=== PATIENT | male | born 2000 | race Caucasian/White ===

== ENCOUNTER 2018-02-07 10:43 | Observation (INO) ==
--- NOTE | 2018-02-07 11:11 | General Surg History&Physical ---
<Errol Thomas R - Last Filed: 02/07/18 11:14> Date of Encounter: 02/07/18 Time of Encounter: 11:00 Assessment and Plan (1) Perianal abscess Status: Acute The assessment and plan as outlined above was discussed with the patient and/or family members who expressed understanding and agreement. All questions were answered. Plan: To operating room for incision and drainage of abscess IV antibiotics Supportive care and pain management Ambulate hallways TID History of Present Illness Chief complaint: perirectal abscess HPI: Mr. Fenrandez is a 17 year old male no significant past medical history. Present to the outpatient office today for follow up of right perirectal abscess. Patient states he noticed the abscess on 01/30. With one present on the lower right buttock and one near the anus. Patient was previously seen in the urgent care center and yesterday in the ED after one of the abscess drained. It was further cleaned and started on Bactrim and Augmentin. Patient denies nausea, vomiting, diarrhea. Endorses a low grade fever. Past Med Surg Social Fam HX - Past Medical History Medical history: non-contributory Psychiatric history: no psych history - Past Surgical History Additional surgical history: [place] teeth - Social History Smoking Status: Never smoker Smokeless Tobacco Status: No Alcohol use: none Drug use: none Medications and Allergies Amoxicillin/Clavulanate [Augmentin] 875 mg PO BIDWM 7 Days tablet 02/06/18 [Rx] Ibuprofen [Motrin Ib] 200 mg PO Q8H PRN 02/07/18 [History] Sulfamethoxazole/Trimeth DS [Bactrim DS] 1 tab PO BID 02/07/18 [History] 3 Allergy/AdvReac Type Severity Reaction Status Date / Time No Known Allergies Allergy Verified 02/07/18 14:13 Review of Systems All systems PM: The remainder of the systems were reviewed and are negative - Constitutional fever(s) - Gastrointestinal no constipation, no diarrhea, no hematochezia, no nausea, no vomiting General Surgery Exam - General physical appearance well developed, well nourished - Eyes PERRL, normal ocular movement - ENT atraumatic, normocephalic - Neck trachea midline - Respiratory normal respiratory effort, clear to auscultation - Cardiovascular Cardiovascular exam: Present: RRR, no murmurs/rubs/gallops - Abdomen Abdomen general surgery: Present: bowel sounds present, soft, non tender. Absent: guarding, rebound Hernia: Present: none - Rectum Rectum: Present: other (Perirectal abscess involving the right perirectal tissue ) - Integumentary Integumentary general surgery: Present: warm and dry - Neurologic Present: CN 2-12 grossly intact - Psychiatric Psychiatric general surgery: Present: A&Ox3, appropriate, speech is normal Results - Labs All other labs normal. <Sammy Lagos - Last Filed: 02/07/18 18:44> Date of Encounter: 02/07/18 History of Present Illness HPI: Mr. Fernandez is a 17 year old male Review of Systems All systems PM: The remainder of the systems were reviewed and are negative General Surgery Exam Initial Vital Signs Pulse Ox 98 02/07/18 12:00 Results - Labs 02/07/18 17:21 Diabetes panel 02/07/18 Range/Units 17:21 Creatinine 1.04 (0.70-1.30) mg/dL Pituitary panel 02/07/18 Range/Units 17:21 Creatinine 1.04 (0.70-1.30) mg/dL Adrenal panel 02/07/18 Range/Units 17:21 Creatinine 1.04 (0.70-1.30) mg/dL All other labs normal. - Attending Attestation I examined this patient and my medical decision-making was reviewed with the Resident Physician. I agree with the documented findings, disposition and treatment plan as described except to the extent set forth below. The patient is seen and evaluated in the office and found to have a perirectal abscess. This will need to be incised and drained in the main operating room. I made arrangements for him to be admitted. He is seen and evaluated with the resident and the clinical nurse practitioner on rounds during the preoperative period of his questions were answered and we will proceed to the operating room later today. Sammy Lagos MD FACS
[2018-02-07] MEDS ORDERED: Naloxone 0.4 MG/ML INJ IVP PRN ×2 (11:49→20:28)
[2018-02-07] MEDS ORDERED: Ondansetron 4 MG/2 ML VIAL IVP PRN ×2 (11:49→20:28)
[2018-02-07] MEDS ORDERED: Acetaminophen 325 MG TABLET PO PRN ×2 (11:54→20:28)
[2018-02-07] MEDS ORDERED: MORPHINE SUL Oral CONC 10 MG/0.5 ML ORAL.SYG PO PRN ×2 (11:54→20:28)
[2018-02-07] MEDS ORDERED: OXYCODONE Oral CONC 10 MG/0.5 ML ORAL.SYG SL PRN ×2 (11:54→20:28)
[2018-02-07] MEDS ORDERED: 0.9 % Sodium Chloride 1,000 ML IVC SCH (12:00)
[2018-02-07] MEDS: Piperacillin/Tazobactam 3.375 GM in 0.9 % Sodium Chloride Mini Bag 100 ML IVPB SCH ×2 (14:22→19:42)
[2018-02-07 17:55] LABS: eGFR For Non-African Americans > 60
--- NOTE | 2018-02-07 18:32 | Anesthesia Evaluation PreOp ---
Date of Encounter: 02/07/18 Time of Encounter: 18:30 - Past History Planned Operation: I&D PERIRECTAL ABCESS Cardiac History: Denies any Significant Hx Pulmonary History: Denies Any Significant HX NET APPLICATION SUPPORT SPECIALIST History: Denies Any Significant HX Other Medical History: Other (OBESITY) Alcohol Use: none Drug use: none Medications and Allergies Amoxicillin/Clavulanate [Augmentin] 875 mg PO BIDWM 7 Days tablet 02/06/18 [Rx] Ibuprofen [Motrin Ib] 200 mg PO Q8H PRN 02/07/18 [History] Sulfamethoxazole/Trimeth DS [Bactrim DS] 1 tab PO BID 02/07/18 [History] 3 Allergy/AdvReac Type Severity Reaction Status Date / Time No Known Allergies Allergy Verified 02/07/18 14:13 - Meds/Allergy Pre-op Review Medications Reviewed: Yes Allergies Reviewed: Yes Beta Blockers on Current Med List: No Anesthesia Results - Labs 02/07/18 17:21 Anesthesia Exam Vital Signs/O2 Sat, Most Current Temp Pulse Resp BP Pulse Ox 98.8 F 70 14 110/70 98 02/07/18 16:21 02/07/18 16:21 02/07/18 16:21 02/07/18 16:21 02/07/18 16:21 Height: 1.7 M Weight: 96 KG BMI 33 NPO (# of Hours): 8 - HEENT Pupil (Motor): Pupils equal Mallampati: I Teeth: Normal Denture Type: Upper: Partial Oral Opening: Greater than 3 - NET APPLICATION SUPPORT SPECIALIST LOC: Oriented - Cardiac Rhythm: Regular - Pulmonary Breath Sounds: bilateral Clear Respiratory Effort: Symmetrical Anesthesia Assess/Plan ASA Score: 2 Modified [place] Scale for Level of Consciousness: Cooperative, oriented, and tranquil Anesthetic Plan: General Monitoring Plan: Standard Monitors Recovery Plan: PACU
[2018-02-07] MEDS ORDERED: *HR* FentaNYL (PF) 100 MCG/2 ML VIAL ONE (18:55)
[2018-02-07] MEDS ORDERED: *HR* Propofol 200 MG/20 ML VIAL IVP ONE (18:55)
[2018-02-07] MEDS ORDERED: CefOXitin 2,000 MG VIAL ONE (19:20)
[2018-02-07] MEDS ORDERED: Dexamethasone 4 MG/ML VIAL ONE (19:23)
[2018-02-07] MEDS ORDERED: Ondansetron 4 MG/2 ML VIAL ONE (19:23)
[2018-02-07] MEDS ORDERED: Lidocaine -MPF 2% 2 ML VIAL ONE (19:23)
--- NOTE | 2018-02-07 19:41 | Operative Note ---
Date of procedure: 02/07/18 Pre-op diagnosis: Perirectal abscess Post-op diagnosis: same Procedure: Incision and drainage of perirectal abscess. Exam under anesthesia. Anesthesia: VERONIQUE Surgeon: Sammy Lagos Was there an hearing aid assistant present: No Estimated blood loss (cc): 10 Specimen: None Condition: stable Disposition: PACU Procedure in Detail: After informed consent the patients taking major operative suite placed supine position given adequate general endotracheal anesthesia. He was then placed in lithotomy. The perineum was prepped and draped in sterile fashion utilizing Betadine and standard draping techniques. There is now actively draining sinus at the 11 o'clock position just outside the anus. Timeout was taken and patient was identified. I placed a rectal retractor made a diligent search for any openings along the dentate line. No openings could be identified. I directly entered the fistula to the skin. There seemed to be a abscess that tracked anteriorly across the midline. I opened widely along the 11:00 radiant. There is a good deal of swelling on the right side before surgery and I made a careful investigation for any sign of abscess in this area I was unable to identify any abscess. The abscess was the superficial abscess that tracked anteriorly. I could not identify any fistula with careful exam under anesthesia. The abscess cavity was packed with iodoform. He tolerated the procedure well. Transferred to recovery in stable condition.
--- NOTE | 2018-02-07 19:57 | Anesthesia Evaluation Post Op ---
Date of Encounter: 02/07/18 Time of Encounter: 19:57 - Discharge PostOp Status: Transfer Patient to floor (Patient's vital signs have been reviewed. Patient is stable postoperatively and has adequately recovered from anesthesia. Patient is determined to have stable airway patency and respiratory function including respiratory rate and oxygen saturation. Patient has a stable heart rate, blood pressure and adequate hydration. Patients mental status is acceptable. Patients temperature is appropriate. Pain and nausea are adequately controlled.)
[2018-02-08] MEDS: Piperacillin/Tazobactam 3.375 GM in 0.9 % Sodium Chloride Mini Bag 100 ML IVPB SCH ×3 (00:46→16:44)
[2018-02-08 04:22] LABS: Basophils % 0.1 %; Eosinophils % 0.1 %; Hematocrit 42.2 % (37.5-50.1); Hemoglobin 14.4 g/dL (12.9-16.9); Immature Granulocytes % 0.4 % (0-4); Lymphocytes # 0.9 K/mcL (0.6-4.6); Lymphocytes % 11.2 %; Mean Corpuscular HGB Conc 34.1 g/dL (31.6-35.5); Mean Corpuscular Hemoglobin 30.6 pg (28.0-33.3); Mean Corpuscular Volume 89.6 fL (83.0-100.0); Mean Platelet Volume 9.8 fL (9.4-12.4); Monocytes # 0.5 K/mcL (0.0-1.3); Monocytes % 6.4 %; Neutrophils # 6.6 K/mcL (1.6-8.9); Platelet Count 305 K/mcL (140-400); Red Blood Count 4.71 M/mcL (4.19-5.50); Red Cell Distribution Width 11.7 % (11.5-14.5); Segmented Neutrophils % 81.8 %
[2018-02-08 04:44] LABS: BUN/Creatinine Ratio 17 (6-26); Blood Urea Nitrogen 19 mg/dL (6-20); Calcium 9.2 mg/dL (8.6-10.3); Carbon Dioxide 24 mEq/L (23-29); Chloride 102 mEq/L (98-107); Glucose 150 mg/dL (70-105); Osmolality,Calculated 283 (280-300); Potassium 4.7 mEq/L (3.5-5.1); Sodium 134 mEq/L (136-145); eGFR For Non-African Americans > 60
[2018-02-08] MEDS: 0.9 % Sodium Chloride 1,000 ML IVC SCH ×2 (05:22→17:52)
--- NOTE | 2018-02-08 13:11 | General Surgery Progress Note ---
<Errol Thomas R - Last Filed: 02/08/18 13:09> Date of Encounter: 02/08/18 Time of Encounter: 08:30 - Assessment and Plan (1) Perianal abscess Current Visit: Yes Status: Acute POD #1 S/P perianal abscess incision and drainage with Dr. Lagos on 02/07/2018 Patient is doing well postoperatively, well-controlled pain. Vital signs are stable, afebrile, no leukocytosis Plan: Wound care orders placed. Area to be washed daily with soap and warm water, remove packing while in sitz bath, repack with iodoform gauze and dressed. Continue IV antibiotics - vancomycin and Zosyn Supportive care and pain management Ambulate hallways at least 3 times a day with assistance ECPDs to bilateral lower extremities Incentive spirometry every 1 hour while awake PPI prophylaxis Subjective Patient reports: no new complaints, pain is less, tolerating liquids well, tolerating a regular diet, voiding w/o difficulty, afebrile Narrative: Patient patient states that he feels little postoperative discomfort. Pain is adequately controlled. Is tolerating regular diet without nausea, vomiting, diarrhea, constipation, fever. Patient is ambulating well. Objective Vital Signs - Last 8 Hours Temp Pulse Resp BP Pulse Ox 02/08/18 10:08 98.3 F 73 16 132/73 98 Intake and Output 02/07/18 02/08/18 02/08/18 23:59 07:59 15:59 Intake Total 0 / 0 830 / 830 570 / 570 Output Total 10 / 10 700 / 700 0 / 0 Balance -10 / -10 130 / 130 570 / 570 Intake: IV Fluids 350 / 350 100 / 100 Zosyn 3.375 GM In 0.9 % Sodium 100 / 100 100 / 100 Chloride (Mini-Bag +) 100 ML @ 25 mls/hr IVPB Q8HR MARY Rx#: [id number] Vancocin 1,500 MG In 0.9 % 250 / 250 Sodium Chloride 250 ML @ 166.67 mls/hr IVPB Q12H MARY Rx#: [id number] Oral 0 / 0 480 / 480 470 / 470 Output: Urine 700 / 700 0 / 0 Estimated Blood Loss 10 / 10 Other: Meal NPO Dinner Breakfast Percent of Meal Consumed 0% 100% # Voids 1 Weight 96.5 kg Patient Weight 02/08/18 23:59 Weight 96.5 kg - General physical appearance well nourished, no distress, other (Mild postoperative pain) - Eyes PERRL, normal ocular movement - ENT atraumatic, normocephalic - Neck Neck exam: trachea midline - Respiratory normal expansion, normal respiratory effort, clear to auscultation - Cardiovascular Cardiovascular exam: Present: RRR, no murmurs/rubs/gallops - Abdomen Abdomen: Present: bowel sounds present, soft, non tender. Absent: guarding, rebound - Rectum other (Perirectal incision and drainage dressing is intact, clean and dry, packing is in place.) - Integumentary no rash - Neurologic CN 2-12 grossly intact - Psychiatric oriented to time, oriented to person, oriented to place, speech is normal - Labs 02/08/18 03:52 02/08/18 03:52 Diabetes panel 02/07/18 02/08/18 Range/Units 17:21 03:52 Sodium 134 L (136-145) mEq/L Potassium 4.7 (3.5-5.1) mEq/L Chloride 102 (98-107) mEq/L Carbon Dioxide 24 (23-29) mEq/L BUN 19 (6-20) mg/dL Creatinine 1.04 1.11 (0.70-1.30) mg/dL Glucose 150 H (70-105) mg/dL Calcium 9.2 (8.6-10.3) mg/dL Calcium panel 02/08/18 Range/Units 03:52 Calcium 9.2 (8.6-10.3) mg/dL Pituitary panel 02/07/18 02/08/18 Range/Units 17:21 03:52 Sodium 134 L (136-145) mEq/L Potassium 4.7 (3.5-5.1) mEq/L Chloride 102 (98-107) mEq/L Carbon Dioxide 24 (23-29) mEq/L BUN 19 (6-20) mg/dL Creatinine 1.04 1.11 (0.70-1.30) mg/dL Glucose 150 H (70-105) mg/dL Calcium 9.2 (8.6-10.3) mg/dL Adrenal panel 02/07/18 02/08/18 Range/Units 17:21 03:52 Sodium 134 L (136-145) mEq/L Potassium 4.7 (3.5-5.1) mEq/L Chloride 102 (98-107) mEq/L Carbon Dioxide 24 (23-29) mEq/L BUN 19 (6-20) mg/dL Creatinine 1.04 1.11 (0.70-1.30) mg/dL Glucose 150 H (70-105) mg/dL Calcium 9.2 (8.6-10.3) mg/dL - VTE Documentation of Mechanical Device: Intermittent pneumatic compression device Consult Discharge Plan - Plan Referrals: Corey Molina DO [Primary Care Provider] - <Sammy Lagos - Last Filed: 02/08/18 16:03> Date of Encounter: 02/08/18 Objective Vital Signs - Last 8 Hours Temp Pulse Resp BP Pulse Ox 02/08/18 10:08 98.3 F 73 16 132/73 98 Intake and Output 02/08/18 02/08/18 02/08/18 07:59 15:59 23:59 Intake Total 830 / 830 690 / 690 Output Total 700 / 700 0 / 0 Balance 130 / 130 690 / 690 Intake: IV Fluids 350 / 350 100 / 100 Zosyn 3.375 GM In 0.9 % Sodium 100 / 100 100 / 100 Chloride (Mini-Bag +) 100 ML @ 25 mls/hr IVPB Q8HR MARY Rx#: [id number] Vancocin 1,500 MG In 0.9 % 250 / 250 Sodium Chloride 250 ML @ 166.67 mls/hr IVPB Q12H MARY Rx#: [id number] Oral 480 / 480 590 / 590 Output: Urine 700 / 700 0 / 0 Other: Meal Lunch Percent of Meal Consumed 100% # Voids 1 Weight 96.5 kg Patient Weight 02/08/18 23:59 Weight 96.5 kg - Labs 02/08/18 03:52 02/08/18 03:52 Diabetes panel 02/07/18 02/08/18 Range/Units 17:21 03:52 Sodium 134 L (136-145) mEq/L Potassium 4.7 (3.5-5.1) mEq/L Chloride 102 (98-107) mEq/L Carbon Dioxide 24 (23-29) mEq/L BUN 19 (6-20) mg/dL Creatinine 1.04 1.11 (0.70-1.30) mg/dL Glucose 150 H (70-105) mg/dL Calcium 9.2 (8.6-10.3) mg/dL Calcium panel 02/08/18 Range/Units 03:52 Calcium 9.2 (8.6-10.3) mg/dL Pituitary panel 02/07/18 02/08/18 Range/Units 17:21 03:52 Sodium 134 L (136-145) mEq/L Potassium 4.7 (3.5-5.1) mEq/L Chloride 102 (98-107) mEq/L Carbon Dioxide 24 (23-29) mEq/L BUN 19 (6-20) mg/dL Creatinine 1.04 1.11 (0.70-1.30) mg/dL Glucose 150 H (70-105) mg/dL Calcium 9.2 (8.6-10.3) mg/dL Adrenal panel 02/07/18 02/08/18 Range/Units 17:21 03:52 Sodium 134 L (136-145) mEq/L Potassium 4.7 (3.5-5.1) mEq/L Chloride 102 (98-107) mEq/L Carbon Dioxide 24 (23-29) mEq/L BUN 19 (6-20) mg/dL Creatinine 1.04 1.11 (0.70-1.30) mg/dL Glucose 150 H (70-105) mg/dL Calcium 9.2 (8.6-10.3) mg/dL - Attending Attestation I examined this patient and my medical decision-making was reviewed with the Resident Physician. I agree with the documented findings, disposition and treatment plan as described except to the extent set forth below. The patient is seen and evaluated with the resident on morning rounds. He has had good pain relief after incision and drainage perirectal abscess. He had significant erythematous and cellulitic changes on the right perineum with no deep abscess. This will be treated aggressively with IV antibiotic. Regular diet. Continue IV antibiotics. Sammy Lagos MD FACS
[2018-02-09] MEDS: Piperacillin/Tazobactam 3.375 GM in 0.9 % Sodium Chloride Mini Bag 100 ML IVPB SCH ×2 (01:02→10:03)
[2018-02-09 06:29] VITALS: BP 132/77
--- NOTE | 2018-02-09 11:00 | Discharge Summary ---
<Errol Thomas - Last Filed: 02/09/18 11:52> Date of Encounter: 02/09/18 Time of Encounter: 08:35 - Discharge Diagnosis (1) Perianal abscess Priority: Primary Status: Acute General Surgery Exam Initial Vital Signs Pulse Ox 98 02/07/18 12:00 - General physical appearance well nourished, no distress, no pain - Eyes PERRL, normal ocular movement - ENT normal mucosa, atraumatic, normocephalic - Neck trachea midline - Respiratory normal respiratory effort, clear to auscultation - Cardiovascular Cardiovascular exam: Present: RRR, no murmurs/rubs/gallops - Abdomen Abdomen general surgery: Present: bowel sounds present, soft, non tender - Rectum Rectum: Present: other (Wound is packed with clean and dry dressing) - Integumentary Integumentary general surgery: Present: warm and dry - Neurologic Present: CN 2-12 grossly intact - Psychiatric Psychiatric general surgery: Present: A&Ox3, speech is normal - Hospital Course Hospital course: Mr. Fernandez is a 17 year old male with a one week history of perirectal abscess. Previously treated by [facility] and emergency room visits with oral antibiotics. Patient presented to the hospital for surgical incision and drainage of perirectal abscess and IV antibiotics. Patient was taken to operating room on 02/07/18. Tolerated the procedure well. Pain control has been excellent. Patient is tolerating regular diet without nausea, vomiting, or diarrhea. Vital signs are within normal limits and stable, afebrile. No leukocytosis. He is ambulating well without assistance. Wound has been cleaned and repacked daily, and patient and family have been given instruction for wound care management and packing. Patient is stable for discharge with follow up appointment scheduled on 02/11/[address] Lagos, at which time further recommendations for wound management will be made. - Time Spent with Patient Total time spent providing and/or coordinating discharge services: - Discharge Medications Prescriptions: OxyCODONE/APAP 5/325 [Percocet 5/325 MG] 1 each PO Q6HR PRN 7 Days #28 tablet PRN Reason: Pain Ciprofloxacin HCl [Cipro] 500 mg PO Q12H #14 tablet Docusate [Colace] 100 mg PO BID #30 capsule Ibuprofen 800 mg PO Q8H PRN #42 tablet PRN Reason: Pain metroNIDAZOLE [Metronidazole] 500 mg PO Q8H #21 tablet Home Medications: Amoxicillin/Clavulanate [Augmentin] 875 mg PO BIDWM 7 Days tablet 02/06/18 [Rx] Ibuprofen [Motrin Ib] 200 mg PO Q8H PRN 02/07/18 [History] Sulfamethoxazole/Trimeth DS [Bactrim DS] 1 tab PO BID 02/07/18 [History] Ciprofloxacin HCl [Cipro] 500 mg PO Q12H #14 tablet 02/09/18 [Rx] Docusate [Colace] 100 mg PO BID #30 capsule 02/09/18 [Rx] Ibuprofen 800 mg PO Q8H PRN #42 tablet 02/09/18 [Rx] OxyCODONE/APAP 5/325 [Percocet 5/325 MG] 1 each PO Q6HR PRN 7 Days #28 tablet [Rx] metroNIDAZOLE [Metronidazole] 500 mg PO Q8H #21 tablet 02/09/18 [Rx] Allergies/Adverse Reactions: 3 Allergy/AdvReac Type Severity Reaction Status Date / Time No Known Allergies Allergy Verified 02/07/18 14:13 Date of admission: 02/07/18 11:21 Primary care physician: Corey Harris Colopy Labs on day of discharge: Labs from last 24 hours 02/09/18 00:28 Vancomycin Trough 10 - Patient Status Disposition: Home, Self-Care Condition: Good Functional capacity at discharge: independent ambulation Overall status at discharge: patient is progressing back to baseline - Discharge Instructions Instructions: Anorectal Abscess and Anal Fistula (DC), Acute Wound Care (DC) Follow Up With: Sammy Lagos MD [Partnered Physician] - 02/11/18 2:30 pm ColCorey krishnan DO [Primary Care Provider] - Forms: Inpatient Work/School Release Additional Instructions: General Surgical Discharge Instructions 1. No pushing, pulling, or lifting greater than 15 lbs for 2-4 weeks (depending upon procedure). 2. You may shower beginning today, but no tub baths, soaking, or swimming for 2 weeks. 3. You may resume driving when you are off narcotics and are safe to react in a car. 4. Take ibuprofen every 8 hours for discomfort. If this does not relieve discomfort, you may take the as needed Percocet. Take narcotics as directed. Do not take more narcotics then directed and do not share your narcotics with any other person. Do not drink alcohol while on narcotics. 5. Take stool softeners (Colace) or a water based laxative (Miralax) while taking narcotics. You may hold for loose stools. 6. Report any fevers greater than 100.5F, increase abdominal discomfort, drainage that looks like pus, increased redness or pain at the surgical site, or any vomiting. 7. Report any pain in the calves, shortness of breath, or rapid heartbeat. 8. Follow-up in the office as directed. 9. If you were prescribed antibiotics, do not stop them without talking to your provider. Daily Wound Care: Remove dressing and packing. Wash/Shower with antibacterial soap. Repack with 1/4 in plain gauze. cover with a dry dressing. Tape to secure. May reinforce or change outer dressing as needed. - Diet and Activity Activity: increase activity as tolerated Diet: advance to your usual diet <Sammy Lagos - Last Filed: 02/11/18 08:34> Date of Encounter: 02/09/18 General Surgery Exam Initial Vital Signs Pulse Ox 98 02/07/18 12:00 - Hospital Course Hospital course: Mr. Fernandez is a 17 year old male - Time Spent with Patient Total time spent providing and/or coordinating discharge services: Date of admission: 02/07/18 11:21 Primary care physician: Corey Molina - Attending Attestation I examined this patient and my medical decision-making was reviewed with the Resident Physician. I agree with the documented findings, disposition and treatment plan as described except to the extent set forth below. The patient is seen and evaluated on morning rounds with resident. He is doing quite well after incision and drainage of perirectal abscess. I discussed packing and sitz bath with his mother. He is ready for discharge. Sammy Lagos MD FACS
[2018-02-09] MEDS ORDERED: Aminoglycoside Consult 1 EACH MC ONE (11:59)
== END 2018-02-09 12:00 | disposition home or self-care (01) ==
LOC: 3ANU
PROVIDERS: ADMIT Surgery; ATTEND Surgery